=== PATIENT | male | born 1945 | race Caucasian/White ===

== ENCOUNTER 2024-11-27 00:02 | Outpatient (CLI) | payer MEDICARE, SELFPAY ==
--- NOTE | 2024-11-27 | DI.MRI_ITS ---
Exam(s) MR BRAIN WO/W EXAM: MR BRAIN WO/W CLINICAL HISTORY: PROSTATE CANCER METASTATIC TO MULTIPLE SITES,? BRAIN METASTASES C61.. TECHNIQUE: Multiplanar multisequence MRI of the brain was performed. CONTRAST MATERIAL: IV Contrast: 18 ML of Dotarem contrast administered. COMPARISON: No exams were available for comparison FINDINGS: VENTRICLES AND EXTRA AXIAL SPACES: Normal in size and morphology for the patient's age. HEMORRHAGE: None. CEREBRAL PARENCHYMA: No focus of restricted diffusion to suggest acute infarct. No space-occupying lesion identified. Mild atrophy. Mild prominence of perivascular spaces. Minimal white matter changes likely reflecting small chronic microvascular disease. BRAINSTEM/CEREBELLUM: Normal. CALVARIUM: Normal. ENHANCEMENT: No suspicious enhancement identified. VISUALIZED PARANASAL SINUSES/MASTOIDS: Clear. Orbits: Unremarkable. Pituitary: Not enlarged. Vasculature: Normal flow voids. IMPRESSION: No evidence of metastatic disease to the brain. DATA REPOSITORY:
[2024-11-27] MEDS: Normal Saline Flush 10 ML SYR IVP (10:45)
[2024-11-27] MEDS: Gadoterate meglumine 20 ML SYRINGE 18 ML IVP (10:46)
== END 2024-11-27 00:22 ==
PROVIDERS: Visit Provider Neurological Surgery
DX: C61 Malignant neoplasm of prostate (principal)
CPT/HCPCS: 70553